=== PATIENT | male | born 1960 | race Caucasian/White ===

== ENCOUNTER 2020-09-16 10:25 | Outpatient (CLI) | payer BC | END 2020-09-16 10:26 | disposition home or self-care (01) | LOC: CSHWCC 10:25 | PROVIDERS: ATTEND Nurse Practitioner Family | DX: I87.2 Venous insufficiency (chronic) (peripheral) (principal); E11.621 Type 2 diabetes mellitus with foot ulcer; L97.422 Non-pressure chronic ulcer of left heel and midfoot with fat layer exposed; L97.423 Non-pressure chronic ulcer of left heel and midfoot with necrosis of muscle; E11.40 Type 2 diabetes mellitus with diabetic neuropathy, unspecified; E11.65 Type 2 diabetes mellitus with hyperglycemia; I11.9 Hypertensive heart disease without heart failure; E78.2 Mixed hyperlipidemia; G47.33 Obstructive sleep apnea (adult) (pediatric); R60.0 Localized edema; Z89.511 Acquired absence of right leg below knee | CPT/HCPCS: 99203; G0463 ==

== ENCOUNTER 2020-09-28 14:01 | Outpatient (CLI) | payer BC | END 2020-09-28 14:02 | disposition home or self-care (01) | LOC: CSHWCC 14:01 | PROVIDERS: ATTEND Nurse Practitioner Family | DX: I87.2 Venous insufficiency (chronic) (peripheral) (principal); E11.621 Type 2 diabetes mellitus with foot ulcer; L97.422 Non-pressure chronic ulcer of left heel and midfoot with fat layer exposed; L97.423 Non-pressure chronic ulcer of left heel and midfoot with necrosis of muscle; R60.0 Localized edema; I11.9 Hypertensive heart disease without heart failure; E78.2 Mixed hyperlipidemia; G47.33 Obstructive sleep apnea (adult) (pediatric); Z89.511 Acquired absence of right leg below knee | CPT/HCPCS: 99213; G0463 ==

== ENCOUNTER 2020-09-28 15:15 | Inpatient (IN) | payer BC, SELFPAY ==
[2020-09-28] MEDS ORDERED: Cefepime 2 GM VIAL ONE (17:36)
[2020-09-28 18:06] LABS: #Basophils 0.1 10x3/uL (0.0-0.2); #Eosinphils 0.1 10x3/uL (0.0-0.5); #Monocytes 0.5 10x3/uL (0.0-1.1); #Neutrophils 10.2 10x3/uL (1.5-8.4); %Basophils 0.4 % (0.0-2.0); %Lymphocytes 12.1 % (18.0-47.0); %Monocytes 4.2 % (0.0-10.0); %Neutrophils 81.3 % (40.0-75.0); Hemoglobin 12.3 g/dL (13.5-17.5); Mean Corpuscular HGB CONC 32.1 g/dL (32.0-36.0); Mean Corpuscular Hemoglobin 24.2 pg (27.0-33.0); Mean Corpuscular Volume 75.4 fl (81.2-95.1); Mean Platelet Volume 10.3 fl (7.4-10.4); Platelet Count 355 10x3/uL (150-450); RBC Distribution Width 15.7 % (11.5-14.5); Red Blood Cell (RBC) Count 5.08 10x6/uL (4.32-5.72); White Blood Cell (WBC) Count 12.5 10x3/uL (3.5-10.5)
[2020-09-28 18:18] LABS: ALT (SGPT) 49 U/L (8-55); Alkaline Phosphatase 91 U/L (40-110); Anion Gap 15 mmol/L (10-20); BUN (Urea Nitrogen) 21 mg/dL (8.4-25.7); Bilirubin, Total 0.4 mg/dL (0.2-1.2); Calc. Creatinine Clearance 0 mL/min (70-130); Calcium 9.5 mg/dL (7.8-10.44); Carbon Dioxide 23 mmol/L (23-31); Chloride 100 mmol/L (98-107); Globulin 6.1 g/dL (2.4-3.5); Glucose 259 mg/dL (80-115); Potassium 5.1 mmol/L (3.5-5.1); Protein, Total 9.1 g/dL (5.8-8.1); Sodium 133 mmol/L (136-145)
[2020-09-28 18:25] LABS: AST (SGOT) 30 U/L (5-34)
[2020-09-28] MEDS ORDERED: VANCOMYCIN 2 GRAM/400 ML BAG 2 GM in Premix Bag 1 BAG IVPB SCH (18:30)
[2020-09-28] MEDS ORDERED: Calcium Carbonate 500 MG ChewTAB PO PRN (20:14)
[2020-09-28] MEDS ORDERED: Senokot S 8.6-50 MG TAB PO PRN (20:14)
[2020-09-28] MEDS ORDERED: Guaifenesin DM 100-10/5 ML UDCUP PO PRN (20:14)
[2020-09-28] MEDS ORDERED: Dextrose 50% Abboject 50 ML SYRINGE SLOW IVP PRN (20:14)
[2020-09-28] MEDS ORDERED: Zolpidem Tartrate 5 MG TAB PO PRN (20:14)
[2020-09-28] MEDS ORDERED: Ondansetron PF 4 MG/2 ML Vial IVP PRN (20:14)
[2020-09-28] MEDS ORDERED: Dextrose 5% in Water 1,000 ML IV PRN (20:14)
[2020-09-28 22:02] VITALS: BMI 36.1
[2020-09-28] MEDS ORDERED: Lantus 1000 UNITS/10 ML VIAL SC SCH (22:15)
[2020-09-28] MEDS ORDERED: Atorvastatin Calcium 20 MG TAB PO SCH (22:15)
[2020-09-28] MEDS: Famotidine 20 MG TAB PO SCH (22:27)
[2020-09-28] MEDS: traMADol HCl 50 MG TAB PO PRN (22:28)
[2020-09-28] MEDS: Sodium Chloride 0.9% 1,000 ML IV SCH (22:28)
[2020-09-28] MEDS: MEROPENEM 1 GM/50 ML 1 GM in Premix Bag 1 BAG IVPB SCH (22:32)
[2020-09-28] MEDS: HumaLOG 300 UNITS/3 ML VIAL SC PRN (22:34)
[2020-09-28] MEDS: Acetaminophen 325 MG TAB PO PRN (23:43)
[2020-09-29] MEDS: HumaLOG 300 UNITS/3 ML VIAL SC PRN ×3 (02:39→21:32)
[2020-09-29] MEDS: MEROPENEM 1 GM/50 ML 1 GM in Premix Bag 1 BAG IVPB SCH ×3 (05:29→21:21)
[2020-09-29 05:31] LABS: #Eosinphils 0.2 10x3/uL (0.0-0.5); #Monocytes 0.4 10x3/uL (0.0-1.1); #Neutrophils 9.8 10x3/uL (1.5-8.4); %Basophils 0.1 % (0.0-2.0); %Eosinophils 1.5 % (0.0-6.0); %Lymphocytes 5.9 % (18.0-47.0); %Monocytes 3.2 % (0.0-10.0); %Neutrophils 88.4 % (40.0-75.0); Mean Corpuscular HGB CONC 33.7 g/dL (32.0-36.0); Mean Corpuscular Hemoglobin 25.3 pg (27.0-33.0); Mean Corpuscular Volume 75.2 fl (81.2-95.1); Mean Platelet Volume 10.2 fl (7.4-10.4); Platelet Count 286 10x3/uL (150-450); RBC Distribution Width 15.9 % (11.5-14.5); Red Blood Cell (RBC) Count 3.95 10x6/uL (4.32-5.72)
[2020-09-29 05:43] LABS: Anion Gap 14 mmol/L (10-20); BUN (Urea Nitrogen) 24 mg/dL (8.4-25.7); Calc. Creatinine Clearance 90 mL/min (70-130); Calcium 8.1 mg/dL (7.8-10.44); Carbon Dioxide 18 mmol/L (23-31); Chloride 109 mmol/L (98-107); Glucose 203 mg/dL (80-115); Iron 22 ug/dL (65-175); Iron Binding Capacity, Total 111 mcg/dL (261-462); Potassium 4.5 mmol/L (3.5-5.1); Sodium 136 mmol/L (136-145)
[2020-09-29] MEDS ORDERED: Cefepime 1 GM in Sodium Chloride 0.9% 100 ML IVPB SCH (07:00)
[2020-09-29] MEDS: Lantus 1000 UNITS/10 ML VIAL SC SCH ×2 (09:26→21:31)
[2020-09-29] MEDS: Vancomycin HCl 1 GM in Sodium Chloride 0.9% 250 ML 250 ML IVPB SCH ×2 (09:26→21:36)
[2020-09-29] MEDS: Sodium Chloride 0.9% 1,000 ML IV SCH ×3 (09:27→21:22)
[2020-09-29] MEDS: Lisinopril 5 MG TAB PO SCH (09:28)
[2020-09-29] MEDS: Carvedilol 3.125 MG TAB PO SCH ×2 (09:28→16:58)
[2020-09-29] MEDS: Famotidine 20 MG TAB PO SCH ×2 (09:28→21:20)
[2020-09-29] MEDS: Aspirin 81 mg Enteric Coated Tablet PO SCH (09:28)
[2020-09-29] MEDS: Enoxaparin Sodium 40 MG/0.4 ML SYRINGE SC SCH (09:29)
[2020-09-29 11:15] LABS: Hemoglobin A1c 13.5 % (4.0-6.0)
[2020-09-29] MEDS: traMADol HCl 50 MG TAB PO PRN ×2 (11:59→18:06)
[2020-09-29 13:01] LABS: SARS-CoV-2 PCR by NAA Not Detected (NotDetected)
[2020-09-29] MEDS: Atorvastatin Calcium 20 MG TAB PO SCH (21:20)
[2020-09-29] MEDS: Acetaminophen 325 MG TAB PO PRN (21:20)
[2020-09-30] MEDS: MEROPENEM 1 GM/50 ML 1 GM in Premix Bag 1 BAG IVPB SCH ×3 (06:49→21:00)
[2020-09-30] MEDS: traMADol HCl 50 MG TAB PO PRN ×3 (07:14→20:56)
[2020-09-30 07:48] LABS: Vancomycin, Trough 20.9 ug/mL
[2020-09-30] MEDS: Vancomycin HCl 750 MG in Sodium Chloride 0.9% 250 ML 250 ML IVPB SCH ×2 (08:50→20:56)
[2020-09-30] MEDS: Carvedilol 3.125 MG TAB PO SCH ×2 (08:51→17:22)
[2020-09-30] MEDS: Acetaminophen 325 MG TAB PO PRN ×2 (08:51→20:56)
[2020-09-30] MEDS: Famotidine 20 MG TAB PO SCH ×2 (08:52→20:55)
[2020-09-30] MEDS: Lisinopril 5 MG TAB PO SCH (08:52)
[2020-09-30] MEDS: Aspirin 81 mg Enteric Coated Tablet PO SCH (08:52)
[2020-09-30] MEDS: Enoxaparin Sodium 40 MG/0.4 ML SYRINGE SC SCH (08:53)
[2020-09-30] MEDS: Lantus 1000 UNITS/10 ML VIAL SC SCH ×2 (09:06→20:57)
[2020-09-30] MEDS: Vancomycin HCl 1 GM in Sodium Chloride 0.9% 250 ML 250 ML IVPB SCH (09:14)
[2020-09-30] MEDS: Sodium Chloride 0.9% 1,000 ML IV SCH ×2 (13:43→21:14)
[2020-09-30] MEDS ORDERED: Polyethylene Glycol 3350 17 GM Packet PO PRN (17:22)
[2020-09-30] MEDS: Atorvastatin Calcium 20 MG TAB PO SCH (20:57)
[2020-10-01] MEDS: MEROPENEM 1 GM/50 ML 1 GM in Premix Bag 1 BAG IVPB SCH ×3 (05:24→21:10)
[2020-10-01] MEDS: traMADol HCl 50 MG TAB PO PRN ×4 (05:25→20:40)
[2020-10-01] MEDS: Famotidine 20 MG TAB PO SCH ×2 (09:06→20:40)
[2020-10-01] MEDS: Vancomycin HCl 750 MG in Sodium Chloride 0.9% 250 ML 250 ML IVPB SCH (09:07)
[2020-10-01] MEDS: Lisinopril 5 MG TAB PO SCH (09:07)
[2020-10-01] MEDS: Carvedilol 3.125 MG TAB PO SCH ×2 (09:07→17:12)
[2020-10-01] MEDS: Acetaminophen 325 MG TAB PO PRN ×2 (09:08→21:12)
[2020-10-01] MEDS: Lantus 1000 UNITS/10 ML VIAL SC SCH ×2 (09:08→20:41)
[2020-10-01] MEDS: Enoxaparin Sodium 40 MG/0.4 ML SYRINGE SC SCH (09:08)
[2020-10-01] MEDS: Sodium Chloride 0.9% 1,000 ML IV SCH ×2 (17:12→17:15)
[2020-10-01 19:50] LABS: Vancomycin, Trough 13.5 ug/mL
[2020-10-01] MEDS: Atorvastatin Calcium 20 MG TAB PO SCH (20:40)
[2020-10-01] MEDS: Vancomycin HCl 1 GM in Sodium Chloride 0.9% 250 ML 250 ML IVPB SCH (20:41)
[2020-10-02] MEDS: Sodium Chloride 0.9% 1,000 ML IV SCH ×2 (05:28→19:00)
[2020-10-02] MEDS: traMADol HCl 50 MG TAB PO PRN ×3 (05:28→21:00)
[2020-10-02] MEDS: MEROPENEM 1 GM/50 ML 1 GM in Premix Bag 1 BAG IVPB SCH ×3 (06:20→21:00)
[2020-10-02] MEDS: Acetaminophen 325 MG TAB PO PRN ×3 (08:29→19:00)
[2020-10-02] MEDS: Famotidine 20 MG TAB PO SCH ×2 (08:30→21:00)
[2020-10-02] MEDS: Vancomycin HCl 1 GM in Sodium Chloride 0.9% 250 ML 250 ML IVPB SCH ×2 (08:40→21:00)
[2020-10-02] MEDS: Lantus 1000 UNITS/10 ML VIAL SC SCH (09:49)
[2020-10-02] MEDS: Carvedilol 3.125 MG TAB PO SCH ×2 (13:13→19:01)
[2020-10-02] MEDS: Enoxaparin Sodium 40 MG/0.4 ML SYRINGE SC SCH (13:14)
[2020-10-02] MEDS: Lisinopril 5 MG TAB PO SCH (13:23)
[2020-10-02] MEDS: Atorvastatin Calcium 20 MG TAB PO SCH (21:00)
[2020-10-02] MEDS ORDERED: Lantus 1000 UNITS/10 ML VIAL SC SCH (21:00)
[2020-10-03] MEDS: Sodium Chloride 0.9% 1,000 ML IV SCH (00:27)
[2020-10-03] MEDS: MEROPENEM 1 GM/50 ML 1 GM in Premix Bag 1 BAG IVPB SCH ×3 (05:18→21:33)
[2020-10-03] MEDS: traMADol HCl 50 MG TAB PO PRN ×2 (05:18→20:28)
[2020-10-03] MEDS: Acetaminophen 325 MG TAB PO PRN ×3 (06:17→20:28)
[2020-10-03 08:14] LABS: Vancomycin, Trough 16.1 ug/mL
[2020-10-03] MEDS: Vancomycin HCl 1 GM in Sodium Chloride 0.9% 250 ML 250 ML IVPB SCH ×2 (08:56→20:28)
[2020-10-03] MEDS: Lisinopril 5 MG TAB PO SCH (08:57)
[2020-10-03] MEDS: Carvedilol 3.125 MG TAB PO SCH ×2 (08:57→17:27)
[2020-10-03] MEDS: Famotidine 20 MG TAB PO SCH ×2 (08:57→20:27)
[2020-10-03] MEDS: Enoxaparin Sodium 40 MG/0.4 ML SYRINGE SC SCH (09:06)
[2020-10-03] MEDS: Lantus 1000 UNITS/10 ML VIAL SC SCH (09:11)
[2020-10-03 10:21] LABS: #Eosinphils 0.3 10x3/uL (0.0-0.5); #Monocytes 0.5 10x3/uL (0.0-1.1); #Neutrophils 9.7 10x3/uL (1.5-8.4); %Basophils 0.4 % (0.0-2.0); %Eosinophils 2.2 % (0.0-6.0); %Lymphocytes 5.6 % (18.0-47.0); %Monocytes 4.2 % (0.0-10.0); %Neutrophils 86.8 % (40.0-75.0); Hemoglobin 9.9 g/dL (13.5-17.5); Mean Corpuscular HGB CONC 32.9 g/dL (32.0-36.0); Mean Corpuscular Hemoglobin 24.3 pg (27.0-33.0); Mean Corpuscular Volume 73.8 fl (81.2-95.1); Mean Platelet Volume 10.1 fl (7.4-10.4); Platelet Count 229 10x3/uL (150-450); RBC Distribution Width 16.3 % (11.5-14.5); Red Blood Cell (RBC) Count 4.08 10x6/uL (4.32-5.72); White Blood Cell (WBC) Count 11.2 10x3/uL (3.5-10.5)
[2020-10-03 10:32] LABS: Anion Gap 13 mmol/L (10-20); BUN (Urea Nitrogen) 17 mg/dL (8.4-25.7); Calc. Creatinine Clearance 105 mL/min (70-130); Calcium 8.2 mg/dL (7.8-10.44); Carbon Dioxide 20 mmol/L (23-31); Chloride 106 mmol/L (98-107); Glucose 168 mg/dL (80-115); Potassium 4.6 mmol/L (3.5-5.1); Sodium 134 mmol/L (136-145)
[2020-10-03] MEDS ORDERED: Furosemide 20 MG/2 ML VIAL SLOW IVP SCH (16:30)
[2020-10-03] MEDS: Atorvastatin Calcium 20 MG TAB PO SCH (20:27)
[2020-10-04] MEDS: Acetaminophen 325 MG TAB PO PRN ×2 (05:25→23:47)
[2020-10-04] MEDS: MEROPENEM 1 GM/50 ML 1 GM in Premix Bag 1 BAG IVPB SCH ×3 (05:25→22:37)
[2020-10-04 05:32] LABS: #Eosinphils 0.3 10x3/uL (0.0-0.5); #Monocytes 0.4 10x3/uL (0.0-1.1); #Neutrophils 7.4 10x3/uL (1.5-8.4); %Basophils 0.5 % (0.0-2.0); %Eosinophils 3.4 % (0.0-6.0); %Lymphocytes 6.8 % (18.0-47.0); %Neutrophils 84.8 % (40.0-75.0); Hemoglobin 9.9 g/dL (13.5-17.5); Mean Corpuscular HGB CONC 32.8 g/dL (32.0-36.0); Mean Corpuscular Hemoglobin 24.6 pg (27.0-33.0); Mean Corpuscular Volume 74.9 fl (81.2-95.1); Mean Platelet Volume 10.1 fl (7.4-10.4); Platelet Count 220 10x3/uL (150-450); RBC Distribution Width 16.2 % (11.5-14.5); Red Blood Cell (RBC) Count 4.03 10x6/uL (4.32-5.72); White Blood Cell (WBC) Count 8.8 10x3/uL (3.5-10.5)
[2020-10-04 05:46] LABS: Anion Gap 12 mmol/L (10-20); BUN (Urea Nitrogen) 17 mg/dL (8.4-25.7); Calc. Creatinine Clearance 117 mL/min (70-130); Calcium 8.3 mg/dL (7.8-10.44); Carbon Dioxide 20 mmol/L (23-31); Chloride 107 mmol/L (98-107); Glucose 107 mg/dL (80-115); Potassium 4.4 mmol/L (3.5-5.1); Sodium 135 mmol/L (136-145)
[2020-10-04] MEDS ORDERED: Labetalol HCl 100 MG/20 ML VIAL SLOW IVP SCH (06:45)
[2020-10-04] MEDS ORDERED: Dexamethasone 20 MG/5 ML VIAL ONE (06:47)
[2020-10-04] MEDS ORDERED: Ondansetron PF 4 MG/2 ML Vial ONE (06:47)
[2020-10-04] MEDS ORDERED: Lidocaine 2% PF 5 ML VIAL ONE (06:47)
[2020-10-04] MEDS ORDERED: PROPOFOL 20 ML ONE (06:48)
[2020-10-04] MEDS ORDERED: Fentanyl 100 MCG/2 ML VIAL ONE ×4 (06:48→10:39)
[2020-10-04] MEDS ORDERED: Lidocaine 1% MPF 2 ML VIAL ONE (07:08)
[2020-10-04] MEDS ORDERED: PHENYLEPHRINE-NS 100 MCG/ML 10 ML SYRINGE ONE (09:07)
[2020-10-04] MEDS: Carvedilol 3.125 MG TAB PO SCH ×2 (09:07→17:20)
[2020-10-04] MEDS: Lantus 1000 UNITS/10 ML VIAL SC SCH (09:07)
[2020-10-04] MEDS: Enoxaparin Sodium 40 MG/0.4 ML SYRINGE SC SCH (09:07)
[2020-10-04] MEDS: Famotidine 20 MG TAB PO SCH ×2 (09:07→21:38)
[2020-10-04] MEDS: Lisinopril 5 MG TAB PO SCH (09:08)
[2020-10-04] MEDS: Vancomycin HCl 1 GM in Sodium Chloride 0.9% 250 ML 250 ML IVPB SCH ×2 (09:08→22:30)
[2020-10-04] MEDS ORDERED: ePHEDrine 50 MG/ML VIAL ONE (09:10)
[2020-10-04] MEDS ORDERED: Fentanyl 100 MCG/2 ML VIAL SLOW IVP SCH (12:00)
[2020-10-04] MEDS ORDERED: Acetaminophen 325 MG TAB PO PRN (12:13)
[2020-10-04] MEDS ORDERED: Ketorolac Tromethamine 30 MG/ML VIAL IVP SCH (12:15)
[2020-10-04] MEDS ORDERED: diphenhydrAMINE 50 MG/ML VIAL IVP PRN (13:33)
[2020-10-04] MEDS ORDERED: Ondansetron PF 4 MG/2 ML Vial IVP PRN (13:34)
[2020-10-04] MEDS ORDERED: fentaNYL Citrate/PF 1,000 MCG in Sodium Chloride 0.9% 30 ML IV PRN (13:45)
[2020-10-04] MEDS: Sodium Chloride 0.9% 1,000 ML IV SCH (15:38)
[2020-10-04] MEDS ORDERED: Vancomycin HCl 750 MG in Sodium Chloride 0.9% 250 ML 250 ML IVPB SCH (20:30)
[2020-10-04] MEDS: HumaLOG 300 UNITS/3 ML VIAL SC PRN (21:30)
[2020-10-04] MEDS: Atorvastatin Calcium 20 MG TAB PO SCH (21:38)
[2020-10-05] MEDS: MEROPENEM 1 GM/50 ML 1 GM in Premix Bag 1 BAG IVPB SCH ×2 (05:56→13:46)
[2020-10-05 06:37] LABS: #Eosinphils 0.3 10x3/uL (0.0-0.5); #Monocytes 0.3 10x3/uL (0.0-1.1); #Neutrophils 4.7 10x3/uL (1.5-8.4); %Basophils 0.2 % (0.0-2.0); %Eosinophils 4.5 % (0.0-6.0); %Lymphocytes 12.5 % (18.0-47.0); %Monocytes 4.7 % (0.0-10.0); %Neutrophils 77.6 % (40.0-75.0); Hemoglobin 7.4 g/dL (13.5-17.5); Mean Corpuscular HGB CONC 32.5 g/dL (32.0-36.0); Mean Corpuscular Hemoglobin 24.3 pg (27.0-33.0); Mean Platelet Volume 10.1 fl (7.4-10.4); Platelet Count 211 10x3/uL (150-450); RBC Distribution Width 16.5 % (11.5-14.5); Red Blood Cell (RBC) Count 3.04 10x6/uL (4.32-5.72)
[2020-10-05 07:10] LABS: Anion Gap 13 mmol/L (10-20); BUN (Urea Nitrogen) 24 mg/dL (8.4-25.7); Calc. Creatinine Clearance 95 mL/min (70-130); Calcium 7.9 mg/dL (7.8-10.44); Carbon Dioxide 20 mmol/L (23-31); Chloride 111 mmol/L (98-107); Glucose 102 mg/dL (80-115); Potassium 4.6 mmol/L (3.5-5.1); Sodium 139 mmol/L (136-145)
[2020-10-05] MEDS: Vancomycin HCl 1 GM in Sodium Chloride 0.9% 250 ML 250 ML IVPB SCH ×2 (08:22→21:41)
[2020-10-05] MEDS: Lantus 1000 UNITS/10 ML VIAL SC SCH (08:22)
[2020-10-05] MEDS: Lisinopril 5 MG TAB PO SCH (08:23)
[2020-10-05] MEDS: Enoxaparin Sodium 40 MG/0.4 ML SYRINGE SC SCH (08:24)
[2020-10-05] MEDS: Famotidine 20 MG TAB PO SCH ×2 (08:24→21:48)
[2020-10-05] MEDS: Carvedilol 3.125 MG TAB PO SCH ×2 (08:24→17:09)
[2020-10-05] MEDS: Acetaminophen 325 MG TAB PO PRN ×2 (13:44→21:48)
[2020-10-05] MEDS: Atorvastatin Calcium 20 MG TAB PO SCH (21:48)
[2020-10-06] MEDS: MEROPENEM 1 GM/50 ML 1 GM in Premix Bag 1 BAG IVPB SCH ×4 (00:29→22:23)
[2020-10-06 06:18] LABS: #Eosinphils 0.4 10x3/uL (0.0-0.5); #Monocytes 0.3 10x3/uL (0.0-1.1); #Neutrophils 5.4 10x3/uL (1.5-8.4); %Basophils 0.3 % (0.0-2.0); %Lymphocytes 13.3 % (18.0-47.0); %Monocytes 4.2 % (0.0-10.0); %Neutrophils 76.4 % (40.0-75.0); Hemoglobin 7.7 g/dL (13.5-17.5); Mean Corpuscular HGB CONC 33.2 g/dL (32.0-36.0); Mean Corpuscular Hemoglobin 24.8 pg (27.0-33.0); Mean Corpuscular Volume 74.8 fl (81.2-95.1); Mean Platelet Volume 10.1 fl (7.4-10.4); Platelet Count 225 10x3/uL (150-450); RBC Distribution Width 16.5 % (11.5-14.5); White Blood Cell (WBC) Count 7.1 10x3/uL (3.5-10.5)
[2020-10-06] MEDS: HumaLOG 300 UNITS/3 ML VIAL SC PRN ×3 (06:29→20:42)
[2020-10-06 06:30] LABS: Anion Gap 13 mmol/L (10-20); BUN (Urea Nitrogen) 25 mg/dL (8.4-25.7); Calc. Creatinine Clearance 84 mL/min (70-130); Calcium 7.7 mg/dL (7.8-10.44); Carbon Dioxide 21 mmol/L (23-31); Chloride 110 mmol/L (98-107); Glucose 251 mg/dL (80-115); Potassium 4.4 mmol/L (3.5-5.1); Sodium 140 mmol/L (136-145)
[2020-10-06 08:10] LABS: Vancomycin, Trough 21.6 ug/mL
[2020-10-06] MEDS: Lantus 1000 UNITS/10 ML VIAL SC SCH (10:08)
[2020-10-06] MEDS: Famotidine 20 MG TAB PO SCH ×2 (10:13→20:41)
[2020-10-06] MEDS: Carvedilol 3.125 MG TAB PO SCH ×2 (10:13→17:44)
[2020-10-06] MEDS: Aspirin 81 mg Enteric Coated Tablet PO SCH (10:13)
[2020-10-06] MEDS: Acetaminophen 325 MG TAB PO PRN (10:14)
[2020-10-06] MEDS: Bumetanide 1 MG/4 ML VIAL IVP SCH ×2 (10:15→20:42)
[2020-10-06] MEDS: Enoxaparin Sodium 40 MG/0.4 ML SYRINGE SC SCH (10:16)
[2020-10-06] MEDS: Lisinopril 5 MG TAB PO SCH (13:06)
[2020-10-06] MEDS: Vancomycin HCl 750 MG in Sodium Chloride 0.9% 250 ML 250 ML IVPB SCH ×2 (13:07→23:39)
[2020-10-06] MEDS: oxyCODONE 5 MG TAB PO PRN ×3 (13:07→23:40)
[2020-10-06] MEDS: traMADol HCl 50 MG TAB PO PRN ×2 (15:25→22:17)
[2020-10-06 18:09] LABS: SARS-CoV-2 IgG Ab Non-Reactive (NonReactive); SARS-CoV-2 IgG Index 0.05 S/CO (< 1.40)
[2020-10-06] MEDS: Atorvastatin Calcium 20 MG TAB PO SCH (20:42)
[2020-10-07] MEDS: traMADol HCl 50 MG TAB PO PRN ×3 (04:34→20:14)
[2020-10-07] MEDS: MEROPENEM 1 GM/50 ML 1 GM in Premix Bag 1 BAG IVPB SCH ×2 (05:48→14:27)
[2020-10-07 06:36] LABS: #Eosinphils 0.4 10x3/uL (0.0-0.5); #Monocytes 0.3 10x3/uL (0.0-1.1); #Neutrophils 5.5 10x3/uL (1.5-8.4); %Basophils 0.1 % (0.0-2.0); %Eosinophils 5.7 % (0.0-6.0); %Lymphocytes 16.3 % (18.0-47.0); %Monocytes 3.8 % (0.0-10.0); Hemoglobin 7.4 g/dL (13.5-17.5); Mean Corpuscular HGB CONC 32.9 g/dL (32.0-36.0); Mean Corpuscular Hemoglobin 24.7 pg (27.0-33.0); Mean Platelet Volume 9.8 fl (7.4-10.4); Platelet Count 276 10x3/uL (150-450); RBC Distribution Width 16.6 % (11.5-14.5); White Blood Cell (WBC) Count 7.6 10x3/uL (3.5-10.5)
[2020-10-07 06:45] LABS: Anion Gap 15 mmol/L (10-20); BUN (Urea Nitrogen) 26 mg/dL (8.4-25.7); Calc. Creatinine Clearance 95 mL/min (70-130); Carbon Dioxide 21 mmol/L (23-31); Chloride 109 mmol/L (98-107); Glucose 132 mg/dL (80-115); Potassium 4.7 mmol/L (3.5-5.1); Sodium 140 mmol/L (136-145)
[2020-10-07] MEDS: Bumetanide 1 MG/4 ML VIAL IVP SCH ×2 (09:14→20:16)
[2020-10-07] MEDS: Famotidine 20 MG TAB PO SCH ×2 (09:14→20:14)
[2020-10-07] MEDS: Lisinopril 5 MG TAB PO SCH (09:15)
[2020-10-07] MEDS: Acetaminophen 325 MG TAB PO PRN (09:15)
[2020-10-07] MEDS: Aspirin 81 mg Enteric Coated Tablet PO SCH (09:16)
[2020-10-07] MEDS: oxyCODONE 5 MG TAB PO PRN ×2 (09:16→14:59)
[2020-10-07] MEDS: Lantus 1000 UNITS/10 ML VIAL SC SCH (09:17)
[2020-10-07] MEDS: Enoxaparin Sodium 40 MG/0.4 ML SYRINGE SC SCH (09:18)
[2020-10-07] MEDS: Carvedilol 3.125 MG TAB PO SCH ×2 (09:18→18:25)
[2020-10-07] MEDS: Vancomycin HCl 750 MG in Sodium Chloride 0.9% 250 ML 250 ML IVPB SCH (10:54)
[2020-10-07 10:56] LABS: Vancomycin, Trough 20.5 ug/mL
[2020-10-07] MEDS: Atorvastatin Calcium 20 MG TAB PO SCH (20:15)
[2020-10-07 21:00] VITALS: BP 142/83; TEMP 99.2
== END 2020-10-07 20:30 | disposition home or self-care (01) | DRG 854 ==
LOC: CSHERS 15:15 → CSHTELE 21:57
PROVIDERS: ADMIT Student in an Organized Health Care Education/Training Program; ATTEND Internal Medicine
PROC: 0Y6J0Z1 Detachment at Left Lower Leg, High, Open Approach (ICD-10-PCS; principal; 2020-10-04)
PROC: 30233N1 Transfusion of Nonautologous Red Blood Cells into Peripheral Vein, Percutaneous Approach (ICD-10-PCS; 2020-10-07)
DX: A41.9 Sepsis, unspecified organism (principal); L02.612 Cutaneous abscess of left foot; E11.52 Type 2 diabetes mellitus with diabetic peripheral angiopathy with gangrene; I96 Gangrene, not elsewhere classified; E11.621 Type 2 diabetes mellitus with foot ulcer; L97.529 Non-pressure chronic ulcer of other part of left foot with unspecified severity; Z95.1 Presence of aortocoronary bypass graft; Z87.891 Personal history of nicotine dependence; E78.5 Hyperlipidemia, unspecified; I25.10 Atherosclerotic heart disease of native coronary artery without angina pectoris; Z89.511 Acquired absence of right leg below knee; I12.9 Hypertensive chronic kidney disease with stage 1 through stage 4 chronic kidney disease, or unspecified chronic kidney disease; E11.22 Type 2 diabetes mellitus with diabetic chronic kidney disease; N18.9 Chronic kidney disease, unspecified; Z88.5 Allergy status to narcotic agent; D50.9 Iron deficiency anemia, unspecified; Z20.822 Contact with and (suspected) exposure to COVID-19
CPT/HCPCS: 36415; 36416; 36430; 71045; 80048; 80053; 80202; 82565; 83036; 83540; 83550; 83605; 83880; 84520; 85025; 85652; 86140; 86769; 86850; 86900; 86901; 87040; 87635; 88307; 88311; 93306; 93923; 96365; 96366; 96367; J0692; J1100; J1815; J1885; J1940; J2001; J2185; J2405; J2704; J3010; J3370; J3490; J7050; P9016; U0003; U0005